=== PATIENT | male | born 2000 | race African-American/Black ===

== ENCOUNTER 2021-07-14 05:16 | Emergency (ER) | payer BC, OTHER ==
[2021-07-14 06:05] VITALS: BP 131/94; PULSE 85; TEMP 98.3; BMI 20.2
[2021-07-14 08:48] LABS: EPI CELLS 31 /uL (0-25.1); HYALINE CASTS 8 /uL (0-3.1); PH,URINE 6.5 (5.0-8.0); URINE APPEARANCE CLEAR; URINE BACTERIA 38 /uL (0-1359); URINE BILIRUBIN NEGATIVE (NEGATIVE); URINE COLOR YELLOW; URINE GLUCOSE (UA) NEGATIVE (NEGATIVE); URINE KETONE NEGATIVE (NEGATIVE); URINE LEUK ESTERASE 2+ (NEGATIVE); URINE NITRITE NEGATIVE (NEGATIVE); URINE PROTEIN NEGATIVE (NEGATIVE); URINE RBC 7 /uL (0-23.9); URINE WBC 268 /uL (0-25.8)
[2021-07-14] MEDS ORDERED: IBUPROFEN 600 MG TABLET (FP) PO ONE ×2 (09:42→09:55)
[2021-07-14] MEDS ORDERED: cefTRIAXone SODIUM 1 GM VIAL ONE (09:55)
== END 2021-07-14 11:00 | disposition home or self-care (01) ==
LOC: JER 05:16
DX: N50.811 Right testicular pain (principal)
CPT/HCPCS: 36415; 76870-TC; 81003; 87086; 87491; 87591; 99284-25

== ENCOUNTER 2021-12-21 12:37 | Emergency (ER) | payer OTHER ==
[2021-12-21 13:07] VITALS: BP 119/67; PULSE 89; TEMP 98.2; BMI 20.9
== END 2021-12-21 13:48 | disposition home or self-care (01) ==
LOC: JERFT 12:37
DX: A64 Unspecified sexually transmitted disease (principal)
CPT/HCPCS: 36415; 87491; 87591; 99284-25

== ENCOUNTER 2022-03-01 17:38 | Emergency (ER) | payer OTHER ==
[2022-03-01 17:57] VITALS: BP 122/64; PULSE 69; TEMP 97.9; BMI 22.3
== END 2022-03-01 20:37 | disposition home or self-care (01) ==
LOC: JERFT 17:38
DX: L30.9 Dermatitis, unspecified (principal)
CPT/HCPCS: 99281-25

== ENCOUNTER 2022-03-16 16:28 | Emergency (ER) | payer OTHER ==
[2022-03-16 17:06] VITALS: BP 130/81; PULSE 83; TEMP 98.2; BMI 22.9
[2022-03-16] MEDS ORDERED: cefTRIAXone SODIUM 1 GM VIAL ONE (17:56)
[2022-03-16 18:37] LABS: PH,URINE 5.5 (5.0-8.0); URINE APPEARANCE CLEAR; URINE BILIRUBIN NEGATIVE (NEGATIVE); URINE COLOR YELLOW; URINE GLUCOSE (UA) NEGATIVE (NEGATIVE); URINE KETONE NEGATIVE (NEGATIVE); URINE LEUK ESTERASE NEGATIVE (NEGATIVE); URINE NITRITE NEGATIVE (NEGATIVE); URINE PROTEIN NEGATIVE (NEGATIVE); URINE UROBILINOGEN 0.2 mg/dL (0.2-1.0)
== END 2022-03-16 18:05 | disposition home or self-care (01) ==
LOC: JERFT 16:28
PROC: 3E023GC Introduction of Other Therapeutic Substance into Muscle, Percutaneous Approach (ICD-10-PCS; principal; 2022-03-16)
DX: A74.9 Chlamydial infection, unspecified (principal)
CPT/HCPCS: 36415; 81003; 87086; 87491; 87591; 99284-25